=== PATIENT | female | born 1950 | race Caucasian/White ===

== ENCOUNTER 2017-03-26 09:27 | Day surgery (SDC) | payer MEDICARE, OTHER ==
[2017-03-24 12:17] VITALS: BMI 32.5
--- NOTE | 2017-03-26 07:57 | P.GSHP ---
History of Present Illness H&P Date: 03/26/17 CHIEF COMPLAINT: GERD HISTORY OF PRESENT ILLNESS: The patient is a 66-year-old female who presents reports gastroesophageal reflux disease. Upper endoscopy was offered for further evaluation and management. PAST MEDICAL HISTORY: Please see list. PAST SURGICAL HISTORY: Please see list. MEDICATIONS: Please see list. ALLERGIES: Please see list. SOCIAL HISTORY: No illicit drug use FAMILY HISTORY: No reports of Crohn disease or ulcerative colitis. REVIEW OF ORGAN SYSTEMS: CONSTITUTIONAL: No reports of fevers or chills. GI: Denies any blood in stools or constipation. PHYSICAL EXAM: VITAL SIGNS: Stable GENERAL: Well-developed and pleasant in no acute distress. HEENT: No scleral icterus. Extraocular movements grossly intact. Moist buccal mucosa. NECK: Supple without lymphadenopathy. CHEST: Unlabored respirations. Equal bilateral excursions. CARDIOVASCULAR: Regular rate and rhythm. Distal 2+ pulses. ABDOMEN: Soft, nondistended. MUSCULOSKELETAL: No clubbing, cyanosis, or edema. ASSESSMENT: 1. Gastroesophageal reflux disease PLAN: 1. Recommend proceeding with an upper endoscopy Past Medical History Past Medical History: Hyperlipidemia, Osteoarthritis (OA), Pneumonia, Skin Disorder Additional Past Medical History / Comment(s): sinus infections, bronchitis, diverticulosis, abdominal pain, IBS, hx ruptured disks, patches of dry skin, History of Any Multi-Drug Resistant Organisms: None Reported Past Surgical History: Back Surgery, Breast Surgery, Cholecystectomy, Hysterectomy, Tonsillectomy Additional Past Surgical History / Comment(s): iman cataracts, colonoscopy, cyst- left breast Past Anesthesia/Blood Transfusion Reactions: No Reported Reaction Past Psychological History: Anxiety Smoking Status: Current every day smoker Past Alcohol Use History: Rare Additional Past Alcohol Use History / Comment(s): quit smoking 2015, smoked since age 16, 1 pack/week Past Drug Use History: None Reported - Past Family History Mother Family Medical History: Cancer Medications and Allergies Home Medications Medication Instructions Recorded Confirmed Type Atorvastatin [Lipitor] 20 mg PO HS 03/24/17 03/24/17 History L.acidoph,Paracasei, B.lactis 1 each PO DAILY 03/24/17 03/24/17 History [Probiotic] Loperamide HCl [Imodium A-D] 2 mg PO BID 03/24/17 03/24/17 History Omeprazole 40 mg PO DAILY 03/24/17 03/24/17 History clonazePAM [KlonoPIN] 1 mg PO HS 03/24/17 03/24/17 History Allergies Allergy/AdvReac Type Severity Reaction Status Date / Time ibuprofen Allergy Severe Itching,rash/hives, Verified 03/24/17 12:02 swelling,SOB amoxicillin [From Augmentin] Allergy Abdominal Verified 03/24/17 12:02 Pain, diarrhea clavulanic acid Allergy Abdominal Verified 03/24/17 12:02 [From Augmentin] Pain, diarrhea morphine Allergy Hallucinati Verified 03/24/17 12:02 ons sleeping pills Allergy keeps me Uncoded 03/24/17 12:02 awake
[~2017-03-26 09:27] MED LIST: LACTATED RINGERS 1,000 ML IV SCH; LIDOCAINE 1% 20 ML VIAL (10MG/ML) FOR IV START INTRADERMA PRN
[2017-03-26 10:15] VITALS: RESP 16; TEMP 98.3
[2017-03-26] MEDS ORDERED: LIDOCAINE 1% INJ 10MG/ML (20 ML MDV) ONE (10:30)
[2017-03-26] MEDS ORDERED: PROPOFOL 10 MG/ML 20 ML VIAL IV ONE (10:30)
--- NOTE | 2017-03-26 10:43 | P.PCN ---
Date of Procedure: 03/26/17 Description of Procedure: PREOPERATIVE DIAGNOSIS: Gastroesophageal reflux disease. POSTOPERATIVE DIAGNOSIS: Gastroesophageal reflux disease. Chronic gastritis Diaphragmatic hiatal hernia. Erosive esophagitis Duodenitis. OPERATION: Esophagogastroduodenoscopy with biopsies along antrum and duodenum. SURGEON: Consuelo Merrill MD ANESTHESIA: MAC. INDICATIONS: The patient is a 66-year-old female who presents with a history of gastroesophageal reflux disease. Benefits and risks of the procedure were described. Informed consent was obtained. DESCRIPTION: The patient was brought into the endoscopy suite and laid in the left lateral decubitus position. An Olympus gastroscope was passed along the posterior oropharynx down to the distal esophagus where the squamocolumnar junction was encountered at 38 cm from the incisors. The stomach was entered and minimal bile reflux was found. Additional findings are listed below. Biopsies with cold forceps were obtained of the antrum. The first through third portion of the duodenum was examined and remarkable for duodenitis.. Retroflexion of the scope confirmed Hill grade 3 lower esophageal valve. The squamocolumnar junction demostrated chronic LA grade A erosive esophagitis. The stomach was desufflated. The patient tolerated the procedure well. FINDINGS: Squamocolumnar junction 38 cm from the incisors. Diaphragmatic hiatus at 38 cm from the incisors Hill grade 3 lower esophageal valve. LA grade A erosive esophagitis. Chronic gastritis along the antrum. Active duodenitis. RECOMMENDATIONS: Continue medical therapy. Further recommendations pending results of pathology report. Upper endoscopy as needed. Plan - Discharge Summary Discharge Medication List Atorvastatin [Lipitor] 20 mg PO HS 03/24/17 [History] L.acidoph,Paracasei, B.lactis [Probiotic] 1 each PO DAILY 03/24/17 [History] Loperamide HCl [Imodium A-D] 2 mg PO BID 03/24/17 [History] Omeprazole 40 mg PO DAILY 03/24/17 [History] clonazePAM [KlonoPIN] 1 mg PO HS 03/24/17 [History]
[2017-03-26 11:05] VITALS: BP 120/76; PULSE 66
== END 2017-03-26 11:52 | disposition home or self-care (01) ==
LOC: ORWHC2ENDO 09:27
PROVIDERS: ATTEND Surgery Plastic and Reconstructive Surgery
DX: K21.0 Gastro-esophageal reflux disease with esophagitis (principal); K29.50 Unspecified chronic gastritis without bleeding; K44.9 Diaphragmatic hernia without obstruction or gangrene; K29.80 Duodenitis without bleeding; E78.5 Hyperlipidemia, unspecified; F41.9 Anxiety disorder, unspecified; F17.200 Nicotine dependence, unspecified, uncomplicated; Z79.899 Other long term (current) drug therapy; Z88.6 Allergy status to analgesic agent; Z88.1 Allergy status to other antibiotic agents; Z88.5 Allergy status to narcotic agent; Z88.8 Allergy status to other drugs, medicaments and biological substances; Z88.0 Allergy status to penicillin
CPT/HCPCS: 88305; 88342; 43239; J2001; J2704

== ENCOUNTER → 2017-04-07 | Outpatient (CLI) | payer MEDICARE, OTHER ==
[2017-04-07 11:52] LABS: Blood Urea Nitrogen 13 mg/dL (7-17); Non-African American GFR(MDRD) >60 (>60 ml/min/1.73 sqM)
--- NOTE | 2017-04-07 17:48 | CT ---
EXAMINATION TYPE: CT abdomen pelvis w con DATE OF EXAM: 04/07/2017 1:20 PM COMPARISON: NONE INDICATION: Right sided pain DLP: 1234.8 mGycm, Automated exposure control for dose reduction was used. CONTRAST: 100 mL of Omnipaque 300. Study performed with Oral Contrast TECHNIQUE: Axial images were obtained from above the diaphragm to the pubic rami in the axial plane a t 5 mm thick sections. Reconstructed images are reviewed on the computer in the coronal plane. FINDINGS: Limited CT sections are obtained the lung bases. The lung bases are clear. CT ABDOMEN: Liver: Normal Spleen: Normal Pancreas: Normal Adrenal glands: The adrenal glands are normal. Gallbladder: Normal Kidneys: No masses are evident. No hydronephrosis is present. Delayed images were obtained through the kidneys, which remain unremarkable. There is a 1.4 cm cyst in the right kidney Aorta: Vascular calcification is within the aorta. Inferior vena cava: Normal. CT PELVIS: Loops of bowel within the abdomen and pelvis are normal. There are loops of bowel which are incom pletely distended or lack oral contrast limiting their evaluation. Diverticular changes are within th e sigmoid colon. Appendix: Normal as visualized. Urinary bladder: Normal. Genitourinary structures: Uterus and ovaries are not identified. Osseous structures: No suspicious lytic or sclerotic lesions. IMPRESSIONS: 1. Diverticulosis without acute diverticulitis.
== END | disposition home or self-care (01) ==
LOC: RADCTMAIN 10:57
PROVIDERS: ATTEND Surgery Plastic and Reconstructive Surgery
DX: K57.30 Diverticulosis of large intestine without perforation or abscess without bleeding (principal)
CPT/HCPCS: 82565; 84520; 74177; 36415; Q9967

== ENCOUNTER 2018-08-04 14:27 | Observation (INO) | payer MEDICARE ==
[2018-08-04] MEDS ORDERED: ASPIRIN 81 MG PO STA (15:03)
[2018-08-04] MEDS ORDERED: SODIUM CHLORIDE 0.9% 1,000 ML IV STA (15:03)
--- NOTE | 2018-08-04 15:08 | ED ---
Chest Pain HPI - General Chief Complaint: Chest Pain Stated Complaint: chest pain Time Seen by Provider: 08/04/18 14:41 Source: patient, RN notes reviewed, old records reviewed Mode of arrival: ambulatory Limitations: no limitations - History of Present Illness Initial Comments: This Patient is a 68-year-old female presents emergency department today with chief complaint chest pain. Patient reports that the chest pain started while she was walking yesterday and her friend. Patient states that she started to feel some pain down her left arm And into her left shoulder blade. She did have some associated sweating episodes. Patient does report she had a outpatient stress test yesterday as well as he is performed at Dr. Ma's office. She reports that they stated it was benign. She does report that she was started on a low-dose of Lopressor earlier this month. She does have history of high cholesterol. Patient reports that her pain is a 3 out of 10. - Related Data Home Medications Medication Instructions Recorded Confirmed Atorvastatin [Lipitor] 20 mg PO HS 03/24/17 08/04/18 L.acidoph,Paracasei, B.lactis 1 cap PO DAILY 03/24/17 08/04/18 [Probiotic] Metoprolol Tartrate [Lopressor] 12.5 mg PO HS 08/04/1818 Multivitamins, Thera [Multivitamin 1 tab PO DAILY 08/04/18 08/04/18 (formulary)] [place]-3 Fatty Acids/Fish Oil [Fish 1 cap PO QAM 08/04/18 08/04/18 Oil 1,000 mg Softgel] Oxybutynin Chloride [Oxybutynin 10 mg PO HS 08/04/18 08/04/18 Chloride ER] Turmeric Root Extract [Turmeric] 500 mg PO QAM 08/04/181818 Allergies Allergy/AdvReac Type Severity Reaction Status Date / Time ibuprofen Allergy Severe Itching,rash/hives, Verified 08/04/18 16:19 swelling,SOB amoxicillin [From Augmentin] Allergy Abdominal Verified 08/04/18 16:19 Pain, diarrhea clavulanic acid Allergy Abdominal Verified 08/04/18 16:19 [From Augmentin] Pain, diarrhea morphine Allergy Hallucinati Verified 08/04/18 16:19 ons sleeping pills Allergy keeps me Uncoded 08/04/18 14:34 awake Review of Systems ROS Statement: Those systems with pertinent positive or pertinent negative responses have been documented in the HPI. ROS Other: All systems not noted in ROS Statement are negative. EKG Findings - EKG Comments: EKG Findings:: EKG shows sinus rhythm will be discharged QRS. Nonspecific T- wave abnormality. Abnormal EKG noted. Ventricular rate of 63 bpm. Verbal is 158 ms. QRS ration 70 ms. QT QTc is 417 ms. Past Medical History Past Medical History: Hyperlipidemia, Osteoarthritis (OA), Pneumonia, Skin Disorder Additional Past Medical History / Comment(s): sinus infections, bronchitis, diverticulosis, abdominal pain, IBS, hx ruptured disks, patches of dry skin, History of Any Multi-Drug Resistant Organisms: None Reported Past Surgical History: Back Surgery, Breast Surgery, Cholecystectomy, Hysterectomy, Tonsillectomy Additional Past Surgical History / Comment(s): iman cataracts, colonoscopy, cyst- left breast Past Anesthesia/Blood Transfusion Reactions: No Reported Reaction Past Psychological History: Anxiety Smoking Status: Current every day smoker Past Alcohol Use History: Rare Past Drug Use History: None Reported - Past Family History Mother Family Medical History: Cancer General Exam - General Exam Comments Initial Comments: 68-year-old female. Alert and oriented. No significant distress at this time. Limitations: no limitations General appearance: alert, in no apparent distress Head exam: Present: atraumatic, normocephalic, normal inspection Eye exam: Present: normal appearance, PERRL, EOMI. Absent: scleral icterus, conjunctival injection, periorbital swelling ENT exam: Present: normal exam, mucous membranes moist Neck exam: Present: normal inspection. Absent: tenderness, meningismus, lymphadenopathy Respiratory exam: Present: normal lung sounds bilaterally. Absent: respiratory distress, wheezes, rales, rhonchi, stridor Cardiovascular Exam: Present: regular rate, normal rhythm, normal heart sounds. Absent: systolic murmur, diastolic murmur, rubs, gallop, clicks GI/Abdominal exam: Present: soft, normal bowel sounds. Absent: distended, tenderness, guarding, rebound, rigid Extremities exam: Present: normal inspection, full ROM, normal capillary refill , other (Patient is slight tenderness to palpation over the left trapezius muscle.). Absent: tenderness, pedal edema, joint swelling, calf tenderness Back exam: Present: normal inspection Neurological exam: Present: alert, oriented X3, CN II-XII intact Psychiatric exam: Present: normal affect, normal mood Skin exam: Present: warm, dry, intact, normal color. Absent: rash Course Vital Signs 08/04/18 08/04/18 08/04/18 14:31 15:16 16:25 Temperature 98.2 F Pulse Rate 60 54 L Pulse Rate [ 60 Left] Respiratory 16 16 Rate Blood Pressure 132/73 109/60 O2 Sat by Pulse 99 97 Oximetry 08/04/18 16:46 Temperature 98.6 F Pulse Rate 52 L Pulse Rate [ Left] Respiratory 19 Rate Blood Pressure 109/60 O2 Sat by Pulse 100 Oximetry Chest Pain MDM - MDM 68-year-old female presents emergency department today with chief complaint of some chest pain, she was walking in a store with her friend. She did have an outpatient stress test yesterday by Dr. Ma. Patient has no fevers or chills. Denies any other complaints. EKG was compared to previous EKG from outpatient office yesterday. There is no acute changes. Troponin is negative at this time. Chest x-rays negative for any acute process. We were not able to receive any information on her outpatient stress test by Dr. Ma. Indocin she reports that her pain is diminished. She is a question about going home. Discussed with her factors of hyperlipidemia and her age and the concern with chest pain seemed to be on exertion and like to admit the Patient hospital. Further evaluation by cardiology. Dr. Lagos discussed the case with Dr. Jama. Disposition Clinical Impression: Chest pain Disposition: ADMITTED IP TO THIS HOSP Condition: Stable Is patient prescribed a controlled substance at d/c from ED?: No Referrals: Cas Jama MD [Primary Care Provider] - 1-2 days Time of Disposition: 17:53
[2018-08-04 15:45] LABS: Basophils % (A) 1 %; Eosinophils # (A) 0.1 k/uL (0-0.7); Eosinophils % (A) 2 %; HCT 38.7 % (34.0-46.0); HGB 13.5 gm/dL (11.4-16.0); Lymphocytes # (A) 2.7 k/uL (1.0-4.8); Lymphocytes % (A) 47 %; MCH 29.6 pg (25.0-35.0); MCHC 34.9 g/dL (31.0-37.0); MCV 84.9 fL (80.0-100.0); Mean Platelet Volume 6.5; Monocytes # (A) 0.4 k/uL (0-1.0); Monocytes % (A) 6 %; Neutrophils # (A) 2.4 k/uL (1.3-7.7); Neutrophils % (A) 41 %; Platelet Count 193 k/uL (150-450); RBC 4.56 m/uL (3.80-5.40); RDW 12.7 % (11.5-15.5); WBC 5.7 k/uL (3.8-10.6)
[2018-08-04 15:53] LABS: INR 1.1 (<1.2); Partial Thromboplastin Time 24.6 sec (22.0-30.0); Prothrombin Time 10.9 sec (9.0-12.0)
[2018-08-04 16:01] LABS: ALT 35 U/L (9-52); AST 28 U/L (14-36); Albumin 4.2 g/dL (3.5-5.0); Alkaline Phosphatase 66 U/L (38-126); Anion Gap 9 mmol/L; Blood Urea Nitrogen 17 mg/dL (7-17); Calcium 9.7 mg/dL (8.4-10.2); Carbon Dioxide 26 mmol/L (22-30); Chloride 105 mmol/L (98-107); Glucose 73 mg/dL (74-99); Magnesium 1.7 mg/dL (1.6-2.3); Sodium 140 mmol/L (137-145); Total Bilirubin 0.4 mg/dL (0.2-1.3); Total Protein 7.4 g/dL (6.3-8.2)
[2018-08-04 16:08] LABS: Creatine Kinase 112 U/L (30-135)
--- NOTE | 2018-08-04 16:09 | XR ---
EXAMINATION TYPE: XR chest 2V DATE OF EXAM: 08/04/2018 COMPARISON: NONE TECHNIQUE: PA and lateral views submitted. HISTORY: Chest pain FINDINGS: The lungs are clear and there is no pneumothorax, pleural effusion, or focal pneumonia. Mild hyperi nflation. Biapical pleural thickening. Mild degenerative disc disease. IMPRESSION: 1. No acute process.
[2018-08-04] MEDS: SODIUM CHLORIDE 0.9% 500 ML IV STA ×2 (16:19→16:20)
[2018-08-04 16:21] LABS: Creatine Kinase MB 1.2 ng/mL (0.0-2.4); Troponin I <0.012 ng/mL (0.000-0.034)
[2018-08-04] MEDS ORDERED: IBUPROFEN 400 MG TAB PO PRN (17:54)
[2018-08-04] MEDS ORDERED: KETOROLAC 30 MG/ML 1 ML VIAL IVP PRN (17:54)
[2018-08-04] MEDS ORDERED: NALOXONE 0.4 MG/ML 1 ML VIAL IV PRN (17:54)
[2018-08-04] MEDS ORDERED: ACETAMINOPHEN TAB 325 MG TAB PO PRN (17:54)
[2018-08-04] MEDS ORDERED: MORPHINE SULFATE 4 MG/ML SYRINGE IV PRN (17:54)
[2018-08-04] MEDS ORDERED: ATORVASTATIN 20 MG TAB PO SCH (21:00)
[2018-08-04] MEDS ORDERED: OXYBUTYNIN 10 MG TAB.ER.24 PO SCH (21:00)
[2018-08-04] MEDS ORDERED: METOPROLOL TARTRATE 12.5 MG TAB PO SCH (21:00)
[2018-08-04] MEDS: ALPRAZolam 0.25 MG TAB PO PRN (21:51)
[2018-08-04 21:53] LABS: Creatine Kinase 93 U/L (30-135)
[2018-08-04 22:04] LABS: Creatine Kinase MB 0.9 ng/mL (0.0-2.4); Troponin I <0.012 ng/mL (0.000-0.034)
[2018-08-05 04:13] LABS: Creatine Kinase 81 U/L (30-135)
[2018-08-05 04:23] LABS: Creatine Kinase MB 0.9 ng/mL (0.0-2.4); Troponin I <0.012 ng/mL (0.000-0.034)
--- NOTE | 2018-08-05 07:20 | HP ---
HISTORY AND PHYSICAL CHIEF COMPLAINT: Chest pain. HISTORY OF PRESENT ILLNESS: This 68-year-old female who was brought to the emergency room with complaints of some vague discomfort of her left upper chest, left shoulder area. Described as a tightness sensation. Symptoms occurred when she was walking around. The patient says she feels just fatigued. No other associated symptoms of nausea, vomiting, heartburn, headache, dizziness, palpitations. No diaphoresis. The patient was brought in the emergency room. Noted to have no evidence of any acute EKG changes or enzyme changes. The patient was seen in the outpatient as a new patient to me about a month ago on the . The patient at the time also had made an appointment to see a batch still operator for routine checkup with some similar discomfort in the chest. The patient did have a stress test yesterday, results not available. The patient apparently did not have any significant changes according to the patient on the EKG. They tried to contact the batch still operator this evening, but it was closed. PAST MEDICAL HISTORY: Past medical history is significant for chronic anxiety. The patient used to be on Klonopin for about 13 years and had been weaned off by her physician. The patient not wanting to go back on any of her medication. She did say she is more anxious since her previous physician had taken her off clonazepam. She recently had CT scan of the abdomen and pelvis done without any significant changes. She did see Dr. Merrill who did an EGD and colonoscopy last summer and recommended to have a fundoplication for hiatal hernia. The patient does not believe she has enough symptoms of her hiatal hernia and thus did not keep that appointment with the surgeon. She is followed with a urologist for a cyst on her kidney noted on the CAT scan for workup of hematuria. She had microscopic hematuria. Cystoscopies were unremarkable. The surgeon had reassured her. She has been on oxybutynin for help with her overactive bladder. The patient as mentioned above recently saw the batch still operator for just some chest pains, rapid heartbeat. She had an echo and EKG and stress test results are pending. She does have history of degenerative disc disease affecting the lumbosacral spine with previous back surgery. History of IBS and history of diverticulitis in the past. PAST SURGICAL HISTORY: Significant for back surgery. FAMILY MEDICAL HISTORY: Mother at the age of 97, she had history of colon cancer. A sister at age of 67, she had coronary artery disease. The patient has a sister living, age 71, history of COPD. She has 1 son and 3 daughters, all in good health. SOCIAL HISTORY: Patient lives alone. PERSONAL HISTORY: Nonsmoker. No alcohol. ALLERGIES: Allergies to AUGMENTIN, IBUPROFEN, PAXIL, SULFA. MEDICATIONS: Medications at present include: 1. Vitamin D3. 2. Lipitor 20 mg daily. 3. Oxybutynin ER 10 mg daily. REVIEW OF SYSTEMS: NEURO: Denies any headaches, dizziness. No double vision or blurred vision. No symptoms of TIA, syncope, seizures. PSYCH: Anxiety. CARDIAC: No chest pain, angina, palpitations. RESPIRATORY: Denies shortness of breath, cough, hemoptysis. CARDIAC: No symptoms of chest pain at present. Symptoms complained of vague discomfort left upper chest. GI: No nausea, vomiting, heartburn, abdominal pain, diarrhea, constipation, hematochezia, melena. : No symptoms of dysuria, hematuria. The patient does have some urgency and occasional incontinence and some frequency. EXTREMITIES: No pain, edema. CONSTITUTIONAL: No fever or chills. HEMATOLOGICAL: No anemia or bleeding disorder. ENDOCRINE: No history of diabetes mellitus, hypothyroidism. SKIN: No rashes. MUSCULOSKELETAL: Chronic arthritic pains, tolerable. PHYSICAL EXAMINATION: Pleasant female at present. No distress. Vital signs reveal at the time of my evaluation on 08/04/2018; temperature 97.5, pulse 62, respirations 16, blood pressure 141/67, pulse ox of 98%. HEENT: Normocephalic. Neck is supple. No carotid bruits. No thyromegaly. Chest is clear to auscultation and percussion. CARDIAC: Normal S1, S2 with no gallops, murmurs, rubs. ABDOMEN: Soft. No palpable masses. Bowel sounds normal. No organomegaly. No abdominal bruits. Extremities reveal no edema. Good pulses both upper and lower extremities. NEUROLOGICALLY: Awake, alert, oriented x3 with well-coordinated movements. LABORATORY ASSESSMENT: CBC is normal. PT, PTT normal. Chemistry is normal. Glucose was 73. CPK, troponins are negative. EKG reveals no acute changes. Nonspecific T wave changes are similar to the ones on recent EKG. ASSESSMENT: 1. Atypical chest pain. 2. Anxiety. 3. History of hyperlipidemia. PLAN: The patient is admitted for observation. Serial troponins. If the patient's general condition remains stable and if the cardiac stress testing that she had done on 08/03 is unremarkable, the patient will be discharged home. The patient is going to be placed on some Xanax to help with her anxiety. I have discussed possible use of long- term years of medications such as an SSRI. MMBETSY / RALPHN: [id number] /
[2018-08-05] MEDS ORDERED: NON-FORMULARY DRUG (Omega-3 Fatty Acids/Fish Oil [Fish Oil 1,000 Mg Softgel] 1 CAP) PO SCH (09:00)
[2018-08-05] MEDS ORDERED: LACTOBACILLUS ACIDOPH & BULGAR 1 EACH PACKET PO SCH (09:00)
[2018-08-05] MEDS ORDERED: MULTIVITAMINS, THERA 1 EACH TAB PO SCH (09:00)
[2018-08-05] MEDS ORDERED: NON-FORMULARY DRUG (Turmeric Root Extract [Turmeric] 500 MG) PO SCH (09:00)
[2018-08-05] MEDS ORDERED: PANTOPRAZOLE 40 MG/10 ML VIAL IV SCH (09:00)
[2018-08-05] MEDS ORDERED: SODIUM CHLORIDE 0.9% 1,000 ML in EMPTY BAG 1 BAG IV ONE (09:38)
[2018-08-05] MEDS ORDERED: NITROGLYCERIN SL TABS 0.4 MG TAB SUBLINGUAL PRN (09:38)
[2018-08-05] MEDS ORDERED: ASPIRIN 325 MG TAB PO ONE (09:40)
--- NOTE | 2018-08-05 11:13 | P.CRDCN ---
History of Present Illness History of present illness: This is a pleasant 68-year-old female past medical history significant for dyslipidemia and former nicotine dependence. She also has a history of significant anxiety and panic disorder. She recently established care with Dr. Ma in the office. She has been feeling intermittent symptoms of chest discomfort under the clavicle on the left side with radiation mildly up into the neck to the left shoulder and down the left arm. She saw him in the office in June and at that time he recommended a Lexiscan stress test as well as an echocardiogram. She did undergo the echocardiogram in early July which revealed preserved left ventricular systolic function with ejection fraction 55% and mild mitral regurgitation. She had a Lexiscan stress test on Friday of this week. That stress test revealed a small area of reversibility. She states yesterday while she was shopping with her friend she again felt this discomfort in the chest. She was sitting down when the pain came on she had no associated shortness of breath, nausea, vomiting, dizziness or palpitations or diaphoresis. She came to the hospital for further evaluation. This chest pain ultimately subsided on its own with no specific alleviating factors. EKG reveals sinus mechanism with nonspecific T-wave flattening with no acute ST abnormalities noted. Chest x-ray is negative for acute cardiopulmonary process. Laboratory data reviewed, cardiac enzymes negative 3, hemoglobin 13.5, platelets 193, sodium 140, potassium 4.0, magnesium 1.7, creatinine 0.77, GFR 79. Current cardiac medications include atorvastatin 20 mg daily, Lopressor 12.5 mg twice a day. She also takes oxybutynin 9 tumor anicteric, fish oil, probiotic and multivitamin. Review of Systems At the time of my exam: CONSTITUTIONAL: Denies fever. Denies chills. EYES: Denies blurred vision. Denies vision changes. Denies eye pain. EARS, NOSE, MOUTH & THROAT: Denies headache. Denies sore throat. Denies ear pain. CARDIOVASCULAR: Denies chest pain. Denies shortness of breath. Denies orthopnea. Denies PND. Denies palpitations. RESPIRATORY: Denies cough. GASTROINTESTINAL: Denies abdominal pain. Denies diarrhea. Denies constipation. Denies nausea. Denies vomiting. MUSCULOSKELETAL: Denies myalgias. INTEGUMENTARY: Denies pruitis. Denies rash. NEUROLOGIC: Denies numbness. Denies tingling. Denies weakness. PSYCHIATRIC: Denies anxiety. Denies depression. ENDOCRINE: Denies fatigue. Denies weight change. Denies polydipsia. Denies polyurina. GENITOURINARY: Denies burning, hematuria or urgency with micturation. HEMATOLOGIC: Denies history of anemia. Denies bleeding. Past Medical History Past Medical History: Hyperlipidemia, Osteoarthritis (OA), Pneumonia, Skin Disorder Additional Past Medical History / Comment(s): sinus infections, bronchitis, diverticulosis, abdominal pain, IBS, hx ruptured disks, patches of dry skin, HIATAL HERNIA, History of Any Multi-Drug Resistant Organisms: None Reported Past Surgical History: Back Surgery, Breast Surgery, Cholecystectomy, Hysterectomy, Tonsillectomy Additional Past Surgical History / Comment(s): iman cataracts, colonoscopy, cyst- left breast, EGD W/ BX, BACK FUSION L4-L5 Past Anesthesia/Blood Transfusion Reactions: No Reported Reaction Smoking Status: Former smoker - Past Family History Mother Family Medical History: Cancer Additional Family Medical History / Comment(s): COLON CANCER Father Additional Family Medical History / Comment(s): EMPHYSEMA/ALCOHOLIC Medications and Allergies Home Medications Medication Instructions Recorded Confirmed Type Atorvastatin [Lipitor] 20 mg PO HS 03/24/17 08/04/18 History L.acidoph,Paracasei, B.lactis 1 cap PO DAILY 03/24/17 08/04/18 History [Probiotic] Metoprolol Tartrate [Lopressor] 12.5 mg PO HS 08/04/18 08/04/18 History Multivitamins, Thera [Multivitamin 1 tab PO DAILY 08/04/18 08/04/18 History (formulary)] [place]-3 Fatty Acids/Fish Oil [Fish 1 cap PO QAM 08/04/18 08/04/18 History Oil 1,000 mg Softgel] Oxybutynin Chloride [Oxybutynin 10 mg PO HS 08/04/18 08/04/18 History Chloride ER] Turmeric Root Extract [Turmeric] 500 mg PO QAM 08/04/18 08/04/18 History Allergies Allergy/AdvReac Type Severity Reaction Status Date / Time ibuprofen Allergy Severe Itching,rash/hives, Verified 08/04/18 16:19 swelling,SOB amoxicillin [From Augmentin] Allergy Abdominal Verified 08/04/18 16:19 Pain, diarrhea clavulanic acid Allergy Abdominal Verified 08/04/18 16:19 [From Augmentin] Pain, diarrhea morphine Allergy Hallucinati Verified 08/04/18 16:19 ons sleeping pills Allergy keeps me Uncoded 08/04/18 14:34 awake Physical Exam Vitals: Vital Signs Temp Pulse Pulse Resp BP BP Pulse Ox 08/05/18 03:41 98.0 F 66 16 118/66 97 08/05/18 03:37 16 08/05/18 00:00 98.3 F 60 16 125/69 98 08/04/18 20:15 98.5 F 73 16 123/73 97 08/04/18 20:00 16 08/04/18 19:11 97.5 F L 62 16 141/67 98 08/04/18 18:23 63 18 153/67 99 08/04/18 16:46 98.6 F 52 L 19 109/60 100 08/04/18 16:25 54 L 16 109/60 97 08/04/18 15:16 60 08/04/18 14:31 98.2 F 60 16 132/73 99 Intake and Output 08/04/18 08/05/18 08/05/18 22:59 06:59 14:59 Other: Voiding Method Toilet Toilet # Voids 1 3 Blood pressure 118/66 heart rate 66 afebrile maintaining oxygen saturation on room air GENERAL: This is a 68-year-old female in no apparent distress at the time of my examination. Obese. HEENT: Head is atraumatic, normocephalic. Pupils are equal, round. Sclerae anicteric. Conjunctivae are clear. Mucous membranes of the mouth are moist. Neck is supple. There is no jugular venous distention. No carotid bruit is heard. LUNGS: Clear to auscultation no wheezes, rales or rhonchi. No chest wall tenderness is noted on palpation or with deep breathing. HEART: Regular rate and rhythm without murmurs, rubs or gallops. S1 and S2 heard. ABDOMEN: Soft, nontender. Bowel sounds are heard. No organomegaly noted. EXTREMITIES: No evidence of peripheral edema and no calf tenderness noted. VASCULAR: Radial and dorsalis pedis pulses palpated, no evidence of clubbing. NEUROLOGIC: Patient is awake, alert and oriented x3. Results 08/04/18 15:32 08/04/18 15:32 Cardiac Enzymes 08/04/18 08/04/18 08/04/18 Range/Units 15:32 15:32 21:25 AST 28 (14-36) U/L CK-MB (CK-2) 1.2 0.9 (0.0-2.4) ng/mL Troponin I <0.012 <0.012 (0.000-0.034) ng/mL 08/05/18 Range/Units 03:20 AST (14-36) U/L CK-MB (CK-2) 0.9 (0.0-2.4) ng/mL Troponin I <0.012 (0.000-0.034) ng/mL Coagulation 08/04/18 Range/Units 15:32 PT 10.9 (9.0-12.0) sec APTT 24.6 (22.0-30.0) sec CBC 08/04/18 Range/Units 15:32 WBC 5.7 (3.8-10.6) k/uL RBC 4.56 (3.80-5.40) m/uL Hgb 13.5 (11.4-16.0) gm/dL Hct 38.7 (34.0-46.0) % Plt Count 193 (150-450) k/uL Comprehensive Metabolic Panel 08/04/18 Range/Units 15:32 Sodium 140 (137-145) mmol/L Potassium 4.0 (3.5-5.1) mmol/L Chloride 105 (98-107) mmol/L Carbon Dioxide 26 (22-30) mmol/L BUN 17 (7-17) mg/dL Creatinine 0.77 (0.52-1.04) mg/dL Glucose 73 L (74-99) mg/dL Calcium 9.7 (8.4-10.2) mg/dL AST 28 (14-36) U/L ALT 35 (9-52) U/L Alkaline Phosphatase 66 (38-126) U/L Total Protein 7.4 (6.3-8.2) g/dL Albumin 4.2 (3.5-5.0) g/dL Current Medications Generic Name Dose Route Start Last Admin Trade Name Freq PRN Reason Stop Dose Admin Acetaminophen 650 mg 08/04/18 17:54 Tylenol Tab PO Q6HR PRN Mild Pain or Fever > 100.5 Alprazolam 0.25 mg 08/04/18 20:42 08/04/18 21:51 Xanax PO 0.25 mg Q6H PRN Administration Anxiety Atorvastatin Calcium 20 mg 08/04/18 21:00 08/04/18 20:06 Lipitor PO 20 mg HS FIDELINA Administration Sodium Chloride 1,000 mls @ 20 mls/hr 08/04/18 18:00 Saline 0.9% IV .Q24H FIDELINA Lactobacillus Acidoph/Bulgaricus 1 each 08/05/18 09:00 Lactinex PO DAILY FIDELINA Metoprolol Tartrate 12.5 mg 08/04/18 21:00 08/04/18 20:05 Lopressor PO 12.5 mg HS FIDELINA Administration Multivitamins 1 each 08/05/18 09:00 Theragran PO DAILY FIDELINA Naloxone HCl 0.2 mg 08/04/18 17:54 Narcan IV Q2M PRN Opioid Reversal Oxybutynin Chloride 10 mg 08/04/18 21:00 08/04/18 20:05 Ditropan Xl PO 10 mg HS FIDELINA Administration Pantoprazole Sodium 40 mg 08/05/18 09:00 Protonix IV DAILY FIDELINA Intake and Output 08/04/18 08/05/18 08/05/18 22:59 06:59 14:59 Other: Voiding Method Toilet Toilet # Voids 1 3 08/04/18 15:32 08/04/18 15:32 Assessment and Plan Assessment: ASSESSMENT Unstable angina, recent stress test performed in the office reveals evidence of reversibility Dyslipidemia Former nicotine dependence PLAN Recent Lexiscan stress test has been reviewed with her primary electronic science teacher, Dr. Ma. He recommends proceeding with cardiac catheterization. I have discussed the risks, benefits and alternative therapies for the above-mentioned procedure and for both sedation/analgesia as well as necessary blood product administration, if indicated, as they pertain to this patient. The patient has indicated understanding and acceptance of the risks and procedures discussed. Questions have been answered appropriately and she is agreeable to move forward with the above stated procedure. She has been boarded for with the catheterization lab and the procedure will take place later this afternoon. Further recommendations to follow based upon clinical course and test findings. Thank you kindly for this consultation. Nurse Practitioner note has been reviewed, I agree with a documented findings and plan of care. Patient was seen and examined.
[2018-08-05] MEDS: ALPRAZolam 0.25 MG TAB PO PRN (11:56)
[2018-08-05 11:57] VITALS: TEMP 97.9
[2018-08-05] MEDS ORDERED: MIDAZOLAM 2 MG/2 ML VIAL ONE (12:36)
[2018-08-05] MEDS ORDERED: diphenhydrAMINE 50 MG/ML 1 ML VIAL ONE (12:36)
[2018-08-05] MEDS ORDERED: LIDOCAINE 1% INJ 10MG/ML (20 ML MDV) ONE (12:36)
[2018-08-05] MEDS ORDERED: VERAPAMIL 2.5 MG/ML 2 ML AMP ONE (13:00)
[2018-08-05] MEDS ORDERED: LIDOCAINE 1% INJ 10MG/ML (20 ML MDV) SQ ONE (13:03)
[2018-08-05] MEDS ORDERED: diphenhydrAMINE 50 MG/ML 1 ML VIAL IVP ONE (13:03)
[2018-08-05] MEDS ORDERED: HEPARIN SODIUM 1,000 UN/ML (10ML VL) ONE (13:04)
[2018-08-05] MEDS ORDERED: MIDAZOLAM 2 MG/2 ML VIAL IV ONE (13:04)
[2018-08-05] MEDS ORDERED: VERAPAMIL SYRINGE (5 MG/10 ML) INTRAARTER ONE (13:08)
[2018-08-05] MEDS ORDERED: IV FLUID CONTINUATION 900 ML IV ONE (13:09)
[2018-08-05] MEDS ORDERED: fentaNYL (PF) 50 MCG/ML 2 ML AMP ONE (13:13)
[2018-08-05] MEDS ORDERED: fentaNYL (PF) 50 MCG/ML 2 ML AMP IV ONE (13:15)
[2018-08-05] MEDS ORDERED: IOPAMIDOL-370 125ML BTL INJ ONE (13:16)
[2018-08-05] MEDS ORDERED: SODIUM CHLORIDE 0.9% 1,000 ML IV SCH (13:45)
[2018-08-05 13:51] VITALS: RESP 18
--- NOTE | 2018-08-05 14:08 | CC ---
CARDIAC CATHETERIZATION REPORT DATE OF SERVICE: \08/05/2018 PROCEDURE: Left heart catheterization and coronary angiography. PERFORMED BY: Dr. Jose D Ma. Moderate conscious sedation time was 19 minutes. CLINICAL INFORMATION: Mrs. Poonam Montemayor is a 68-year-old lady with hyperlipidemia and chest discomfort who had a recent stress test 48 hours ago which revealed a partially reversible moderate- sized anterior defect and patient came into the hospital with chest pain and therefore she was advised coronary angiography after due discussion regarding risks, benefits, and options. PROCEDURE NOTE: Under local anesthesia and strict aseptic precautions, a 6-Pakistani introducer was placed in the right radial artery. Micropuncture needle technique was used. An Ultimate 1 catheter was used to perform selective coronary angiography and I used a pigtail catheter to check LV pressures. LV gram was not performed. Patient has history of some renal cysts, but normal creatinine. She tolerated the procedure well. The sheath was taken out and TR band applied as per protocol. Saturation of the fingers of the right hand was excellent. Patient tolerated procedure well without complications. CARDIAC CATHETERIZATION FINDINGS: The left end-diastolic pressure was 12 mmHg without any gradient across the aortic valve. CORONARY ANGIOGRAPHY FINDINGS: RIGHT CORONARY ARTERY: Large dominant disease-free vessel, distally bifurcates into a good-sized PDA and PLV, both of which are free of significant disease. LEFT MAIN CORONARY ARTERY: Short patent disease-free vessel that bifurcates into LAD and circumflex. LEFT ANTERIOR DESCENDING CORONARY ARTERY: Good caliber vessel extends along the anterior wall giving off septal and diagonal branches, runs towards the apex, has a good caliber, good distribution. No significant disease. LEFT POSTERIOR CIRCUMFLEX CORONARY ARTERY: Technically nondominant vessel, gives off a good-sized obtuse marginal that runs laterally, has minor irregularities, no significant disease. LEFT VENTRICULOGRAM: This was not performed. FINAL IMPRESSION: This patient does not have any significant obstructive coronary artery disease, she has a right dominant system, normal filling pressures and no gradient across the aortic valve. RECOMMENDATION: Findings were discussed with the patient and family. She was reassured. Continued medical therapy with risk factor modification is advised and she can be discharged later on today if she remains stable. MMODL / IJN: [id number] /
[2018-08-05 15:45] VITALS: BP 110/58
[2018-08-05] MEDS: SODIUM CHLORIDE 0.9% 1,000 ML IV SCH ×2 (15:55→18:22)
[2018-08-05 16:35] VITALS: PULSE 50
== END 2018-08-05 19:01 | disposition home or self-care (01) ==
LOC: EC 14:27 → 3OBS 17:50
PROVIDERS: ADMIT Internal Medicine; ATTEND Internal Medicine
DX: R07.89 Other chest pain (principal); F41.0 Panic disorder [episodic paroxysmal anxiety]; E78.5 Hyperlipidemia, unspecified; M19.90 Unspecified osteoarthritis, unspecified site; F41.9 Anxiety disorder, unspecified; E78.00 Pure hypercholesterolemia, unspecified; F17.200 Nicotine dependence, unspecified, uncomplicated; J44.9 Chronic obstructive pulmonary disease, unspecified; K58.9 Irritable bowel syndrome, unspecified; N32.81 Overactive bladder; Z80.0 Family history of malignant neoplasm of digestive organs; Z82.49 Family history of ischemic heart disease and other diseases of the circulatory system; Z82.5 Family history of asthma and other chronic lower respiratory diseases; Z90.710 Acquired absence of both cervix and uterus; Z88.6 Allergy status to analgesic agent; Z88.1 Allergy status to other antibiotic agents; Z88.5 Allergy status to narcotic agent; Z88.0 Allergy status to penicillin; Z88.8 Allergy status to other drugs, medicaments and biological substances; Z90.49 Acquired absence of other specified parts of digestive tract; Z98.42 Cataract extraction status, left eye; Z98.41 Cataract extraction status, right eye; Z79.899 Other long term (current) drug therapy; Z98.1 Arthrodesis status
CPT/HCPCS: 96374; 96361; 99285; 36415; 93005; 93458; 80053; 82550 ×2; 82553 ×2; 83735; 84484 ×2; 85025; 85610; 85730; 71046; G0378 ×2; C1769; C1894; J2250; J1200; J2001; J3010; C9113; Q9967

== ENCOUNTER → 2020-03-28 | Outpatient (CLI) | payer MEDICARE ==
--- NOTE | 2020-03-28 14:35 | XR ---
EXAMINATION TYPE: XR chest 2V DATE OF EXAM: 03/28/2020 COMPARISON: [id number] TECHNIQUE: PA and lateral views submitted. HISTORY: Shortness of breath FINDINGS: The lungs are clear and there is no pneumothorax, pleural effusion, or focal pneumonia. Hypertrophi c and degenerative change of the spine. Arthropathy of the shoulders with biapical pleural thickening . IMPRESSION: 1. Slightly coarsened interstitium can be associated with interstitial pneumonitis correlate clinical ly. No pleural effusion. Venous congestion felt less likely.
== END | disposition home or self-care (01) ==
LOC: RADXRMAIN 14:13
PROVIDERS: ATTEND Internal Medicine
DX: J84.89 Other specified interstitial pulmonary diseases (principal)
CPT/HCPCS: 71046

== ENCOUNTER → 2020-04-14 | Outpatient (CLI) | payer MEDICARE ==
--- NOTE | 2020-04-14 11:40 | CT ---
EXAMINATION TYPE: CT chest wo con DATE OF EXAM: 04/14/2020 COMPARISON: 03/28/2020 HISTORY: cough, sob CT DLP: 846.9 mGycm. Automated Exposure Control for Dose Reduction was Utilized. TECHNIQUE: CT scan of the thorax is performed without IV contrast. FINDINGS: LUNGS: The lungs are grossly clear, there is no concerning parenchymal mass or nodule identified. T here is no pleural effusion or pneumothorax seen. The tracheobronchial tree is patent. No significan t interlobular septal thickening. There is central and basilar mild bronchiectasis. Groundglass valdez es are most typical of atelectasis. Apical pleural thickening or scarring incidentally noted. Dual mi llimeter nodule within the right upper lobe on the prone images likely is related to partial volume a veraging. Tiny nodule not excluded. 6 month to 12 month follow-up CT scan chest is obtained. MEDIASTINUM: Lack of IV contrast is noted to limit evaluation for mediastinal and especially hilar ad enopathy. There are no definitive greater than 1 cm hilar or mediastinal lymph nodes. No cardiomega ly or pericardial effusion is seen. OTHER: Simple appearing cyst involving the right kidney measuring 11 Hounsfield units and 1.4 cm.. IMPRESSION: 1. No diagnostic evidence of interstitial lung disease. 2. Central and basilar mild bronchiectasis. 3. Vague groundglass changes most typical of atelectasis
== END | disposition home or self-care (01) ==
LOC: RADCTMAIN 10:58
PROVIDERS: ATTEND Internal Medicine
DX: J47.9 Bronchiectasis, uncomplicated (principal); J98.11 Atelectasis
CPT/HCPCS: 71250

== ENCOUNTER → 2021-01-29 | Outpatient (CLI) | payer MEDICARE | END | disposition home or self-care (01) | LOC: LABWHC1 16:18 | PROVIDERS: ATTEND Internal Medicine | DX: Z20.822 Contact with and (suspected) exposure to COVID-19 (principal) | CPT/HCPCS: U0003; U0005 ==

== ENCOUNTER → 2022-04-22 | Outpatient (CLI) | payer MEDICARE ==
--- NOTE | 2022-04-22 09:30 | CT ---
EXAMINATION TYPE: CT abdomen pelvis wo con DATE OF EXAM: 04/22/2022 COMPARISON: CT dated 04/07/2017 HISTORY: Right abdominal pain CT DLP: 901.3 mGycm Automated exposure control for dose reduction was used. TECHNIQUE: Helical acquisition of images was performed from the lung bases through the pelvis. FINDINGS: LUNG BASES: Minimal bilateral basal pulmonary fibrotic changes/atelectasis. LIVER/GB: Previous cholecystectomy. No definite hepatic focal lesion by this nonenhanced CT scan. PANCREAS: No significant abnormality is seen. SPLEEN: No significant abnormality is seen. ADRENALS: No significant abnormality is seen. KIDNEYS: 17 mm right renal cyst, appreciated previously and suboptimally assessed by this CT scan. Gr ossly unremarkable kidneys otherwise. FREE AIR: No free air is visualized RETROPERITONEAL ADENOPATHY: None visualized REPRODUCTIVE ORGANS: Previous hysterectomy. No gross adnexal mass. URINARY BLADDER: Nondistended. PELVIC ADENOPATHY: No pathologically enlarged pelvic lymph nodes. OSSEOUS STRUCTURES: Osteopenia. Degenerative changes at L5-S1 level. BOWEL: Unremarkable nondistended stomach, duodenum and small bowel. Moderate fecal loading of the co anjelica with scattered uncomplicated colonic diverticulosis. No gross colonic mass however a small lesion cannot be excluded. OTHER: Scattered arterial atherosclerotic calcification. Infrarenal abdominal aortic ectasia measurin g up to 2.4 cm. No sizable ascites. Fat-containing umbilical hernia with overlying skin thickening, p lease correlate clinically. Surgical clips are seen along the posterior aspect of the liver with a le ft abdominal surgical clip, possibly displaced from the previous cholecystectomy. IMPRESSION: No definite acute abnormality or suspicious lesion seen by this nonenhanced CT scan. Incidental findi ngs as described above.
== END | disposition home or self-care (01) ==
LOC: RADCTMAIN 07:50
PROVIDERS: ATTEND Internal Medicine
DX: R10.9 Unspecified abdominal pain (principal)
CPT/HCPCS: 74176

== ENCOUNTER → 2025-05-13 | Outpatient (CLI) | payer MEDICARE ==
[2025-05-13 13:07] LABS: African American GFR (CKD) 80 (>60 ml/min/1.73 sqM); Blood Urea Nitrogen 13 mg/dL (7-17); Non-African American GFR(CKD) 70 (>60 ml/min/1.73 sqM)
--- NOTE | 2025-05-13 13:52 | CT ---
EXAMINATION TYPE: CT abdomen pelvis w con CT DLP: 1559 mGycm, Automated exposure control for dose reduction was used. DATE OF EXAM: 05/13/2025 1:42 PM COMPARISON: CT abdomen pelvis 04/22/2022, 04/07/2017 CLINICAL INDICATION:Female, 74 years old with history of R10.31 RIGHT LOWER QUADRANT PAIN; RLQ pain, diarrhea, history of IBS TECHNIQUE: Standard CT of the abdomen and pelvis following the administration of 100 cc of Isovue 3 00 IV contrast material and oral contrast. Coronal and sagittal reformats were performed. FINDINGS: LOWER CHEST: Unremarkable ABDOMEN LIVER: Diffusely hypoattenuating parenchyma. No focal lesion identified. GALLBLADDER AND BILE DUCTS: The gallbladder is surgically absent. PANCREAS: Unremarkable. SPLEEN: Unremarkable. ADRENAL GLANDS: Unremarkable. KIDNEYS AND URETERS: No evidence of hydronephrosis or renal calculus. The kidneys enhance symmetrical ly. Right mid kidney exophytic cortical 1.9 cm simple cyst. No follow-up recommended. Retroaortic lef t renal vein. PELVIS BLADDER: Underdistended, limiting evaluation. REPRODUCTIVE: The uterus is surgically absent. Surgical clip identified within the rectouterine space . ABDOMEN & PELVIS STOMACH AND BOWEL: Stomach and duodenum are unremarkable. Enteric contrast is reaches the ileocecal j unction. No abnormal bowel wall thickening or surrounding inflammatory changes identified. The append ix is within normal limits. No evidence of bowel obstruction. PERITONEUM: No evidence of pneumoperitoneum or free fluid. VASCULATURE: Mild atherosclerotic calcifications are present throughout the abdominal aorta and its b ranches. No evidence of aortic aneurysm. MUSCULOSKELETAL: No acute osseous abnormalities. Degenerative disc disease L5-S1. LYMPH NODES: No evidence for lymphadenopathy. SOFT TISSUE/ABDOMINAL WALL: Tiny fat filled Bochdalek hernia. IMPRESSION: No CT evidence for acute abdominal/pelvic process. [facility], , 05/13/2025 1:50 PM
== END | disposition home or self-care (01) ==
LOC: RADCTMAIN 11:30
PROVIDERS: ATTEND Surgery
DX: R10.31 Right lower quadrant pain (principal)
CPT/HCPCS: 82565; 84520; 74177; 36415; Q9967